=== PATIENT | male | born 1945 | race Asian ===

== ENCOUNTER 2018-09-05 16:48 | Inpatient (IN) | payer OTHER ==
[~2018-09-05] VITALS: Ht 167.6 cm; Wt 67.6 kg
[2018-09-05 17:54] LABS: BASOPHIL % 0.2 % (0-2); PLATELET COUNT 223 x10^3mcL (130-400); RED CELL DISTRIBUTION WIDTH 14.2 % (11.5-14.5)
[2018-09-05 18:00] LABS: CALCIUM 8.9 mg/dL (8.5-10.1); CARBON DIOXIDE 25.7 mmol/L (21-32); CHLORIDE SERUM 99 mmol/L (98-107); CREATININE SERUM 1.5 mg/dL (0.7-1.3); GLUCOSE SERUM 112 mg/dL (74-106); SODIUM SERUM 135 mmol/L (136-145)
[2018-09-05 18:05] LABS: ALBUMIN 3.8 g/dL (3.4-5.0); ALKALINE PHOSPHATASE 98 U/L (46-116); ALT/SGPT 31 U/L (16-63); AST/SGOT 22 U/L (15-37); BILIRUBIN TOTAL 0.4 mg/dL (0.20-1.00); TOTAL PROTEIN, SERUM 8.3 g/dL (6.4-8.2)
[2018-09-05] MEDS ORDERED: LISINOPRIL2.5 MG (18:42)
[2018-09-05] MEDS ORDERED: AMLODIPINE BES2.5 M1 PO (18:42)
[2018-09-05] MEDS ORDERED: ALLOPURINOL100 MG PO (18:43)
[2018-09-05] MEDS ORDERED: METFORMIN HYDR500 M1 PO (18:43)
[2018-09-05] MEDS ORDERED: TOPROL XL25 MG (18:43)
[2018-09-05 19:06] LABS: CHOLESTEROL/HDL RATIO 4.3; MAGNESIUM 2.3 mg/dL (1.8-2.4); PHOSPHOROUS 3.4 mg/dL (2.5-4.9)
[2018-09-05 19:16] LABS: T3 TOTAL 1.24 ng/mL
[2018-09-05 20:58] LABS: FREE T4 1.07 ng/dL (0.76-1.46); FREE THYROXINE INDEX 3.4 ug/dL (1.4-4.5); T4(THYROXINE) 8.6 ug/dL (4.7-13.3)
[2018-09-05 21:48] VITALS: BP 137/69
[2018-09-05 22:01] VITALS: BP 137/69
[2018-09-06] VITALS: BP 137/69
[2018-09-06 02:57] LABS: microscopic required? NO
[2018-09-06 03:29] LABS: urine erythrocyte NEGATIVE (NEGATIVE)
[2018-09-06 04:05] LABS: AMPHETAMINE QUAL UR NONE DETECTED (See below)
[2018-09-06 05:20] LABS: BASOPHIL % 0.3 % (0-2); PLATELET COUNT 210 x10^3mcL (130-400)
[2018-09-06 05:26] LABS: RED CELL DISTRIBUTION WIDTH 15.1 % (11.5-14.5)
[2018-09-06 05:43] LABS: CALCIUM 8.5 mg/dL (8.5-10.1); CARBON DIOXIDE 25.5 mmol/L (21-32); CHLORIDE SERUM 102 mmol/L (98-107); CREATININE SERUM 1.3 mg/dL (0.7-1.3); GLUCOSE SERUM 170 mg/dL (74-106); MAGNESIUM 2.2 mg/dL (1.8-2.4); PHOSPHOROUS 3.2 mg/dL (2.5-4.9); POTASSIUM SERUM 4.3 mmol/L (3.5-5.1); SODIUM SERUM 136 mmol/L (136-145)
[2018-09-06 06:14] VITALS: BP 128/74
[2018-09-06 07:30] VITALS: BP 141/78
[2018-09-06 10:00] VITALS: BP 124/70
[2018-09-06] MEDS ORDERED: MEDDP PO (11:18)
[2018-09-06 11:33] VITALS: Ht 167.6 cm; Wt 67.6 kg
[2018-09-06 11:48] VITALS: BP 124/70
== END 2018-09-06 12:22 | disposition home or self-care (01) | DRG 915 ==
LOC: ED 16:48 → IC 18:17
PROVIDERS: Emergency Medicine; ADMIT Family Medicine
PROC: 30233K1 Transfusion of Nonautologous Frozen Plasma into Peripheral Vein, Percutaneous Approach (ICD-10-PCS; principal; 2018-09-05)
DX: T78.3XXA Angioneurotic edema, initial encounter (principal); N17.0 Acute kidney failure with tubular necrosis; E87.1 Hypo-osmolality and hyponatremia; E11.9 Type 2 diabetes mellitus without complications; I10 Essential (primary) hypertension; E78.5 Hyperlipidemia, unspecified; M10.9 Gout, unspecified; Z79.84 Long term (current) use of oral hypoglycemic drugs; T46.4X5A Adverse effect of angiotensin-converting-enzyme inhibitors, initial encounter; Y92.018 Other place in single-family (private) house as the place of occurrence of the external cause; Z68.25 Body mass index [BMI] 25.0-25.9, adult
CPT/HCPCS: 82962; 83880; 84439; J0171; J1100; J1200; J2920; J2930; J3490; J7030; J7040; J7620; J7633; P9059; Q0092

== ENCOUNTER 2019-01-26 07:54 | Inpatient (IN) | payer OTHER ==
[~2019-01-26] VITALS: Ht 170.2 cm; Wt 72.2 kg
[~2019-01-26 07:54] MED LIST: ALLOPURINOL100 MG PO; AMLODIPINE BES2.5 M1 PO; LISINOPRIL2.5 MG; MEDDP PO; METFORMIN HYDR500 M1 PO; TOPROL XL25 MG
[2019-01-26 07:58] VITALS: Ht 170.2 cm; Wt 72.2 kg
[2019-01-26 09:02] LABS: microscopic required? NO
[2019-01-26 09:07] LABS: BASOPHIL % 0.4 % (0-2); PLATELET COUNT 197 x10^3mcL (130-400)
[2019-01-26 09:10] LABS: RED CELL DISTRIBUTION WIDTH 15.6 % (11.5-14.5)
[2019-01-26 09:23] LABS: CALCIUM 8.9 mg/dL (8.5-10.1); CARBON DIOXIDE 25.9 mmol/L (21-32); CHLORIDE SERUM 105 mmol/L (98-107); CREATININE SERUM 1.2 mg/dL (0.7-1.3); GLUCOSE SERUM 111 mg/dL (74-106); POTASSIUM SERUM 3.8 mmol/L (3.5-5.1); SODIUM SERUM 141 mmol/L (136-145)
[2019-01-26 09:28] LABS: ALKALINE PHOSPHATASE 93 U/L (46-116); ALT/SGPT 38 U/L (16-63); AMYLASE 59 U/L (25-115); AST/SGOT 18 U/L (15-37); CHOLESTEROL 149 mg/dL (<200); HDL CHOLESTEROL 36 mg/dL (40-60); LIPASE 160 IU/L (73-393); TOTAL PROTEIN, SERUM 7.2 g/dL (6.4-8.2)
[2019-01-26] MEDS ORDERED: LOSARTAN POTASS50 M1 PO (09:28)
[2019-01-26 09:32] LABS: ALBUMIN 3.3 g/dL (3.4-5.0)
[2019-01-26 09:35] LABS: AMPHETAMINE QUAL UR NONE DETECTED (See below)
[2019-01-26 10:22] LABS: UA SPECIFIC GRAVITY <=1.005 (1.005-1.035); urine erythrocyte NEGATIVE (NEGATIVE)
[2019-01-26 12:48] LABS: T3 TOTAL 1.08 ng/mL
[2019-01-26 12:53] LABS: FREE T4 0.94 ng/dL (0.76-1.46); FREE THYROXINE INDEX 2.6 ug/dL (1.4-4.5); T4(THYROXINE) 7.1 ug/dL (4.7-13.3)
[2019-01-26 13:01] LABS: CHOLESTEROL/HDL RATIO 4.2; MAGNESIUM 2.1 mg/dL (1.8-2.4); PHOSPHOROUS 3.5 mg/dL (2.5-4.9)
[2019-01-26 15:51] VITALS: BP 152/76
[2019-01-26 21:27] VITALS: BP 150/74
[2019-01-27 05:01] VITALS: BP 134/74
[2019-01-27 06:17] LABS: BASOPHIL % 0.3 % (0-2); PLATELET COUNT 194 x10^3mcL (130-400)
[2019-01-27 07:00] LABS: RED CELL DISTRIBUTION WIDTH 15.4 % (11.5-14.5)
[2019-01-27 07:01] LABS: rbc morphology (normal/abnorm) ABNORMAL (NORMAL)
[2019-01-27 08:26] VITALS: BP 155/72
[2019-01-27 12:02] LABS: CALCIUM 8.5 mg/dL (8.5-10.1); CARBON DIOXIDE 29.3 mmol/L (21-32); CHLORIDE SERUM 103 mmol/L (98-107); CREATININE SERUM 1.1 mg/dL (0.7-1.3); GLUCOSE SERUM 123 mg/dL (74-106); SODIUM SERUM 139 mmol/L (136-145)
[2019-01-27 12:36] VITALS: BP 153/84
[2019-01-27 17:12] VITALS: BP 149/78
[2019-01-27 21:17] VITALS: BP 148/78
[2019-01-28 06:01] VITALS: BP 155/77
[2019-01-28 07:29] LABS: BASOPHIL % 0.1 % (0-2); PLATELET COUNT 194 x10^3mcL (130-400)
[2019-01-28 07:33] LABS: RED CELL DISTRIBUTION WIDTH 15.2 % (11.5-14.5)
[2019-01-28 07:46] LABS: CALCIUM 8.9 mg/dL (8.5-10.1); CARBON DIOXIDE 26.4 mmol/L (21-32); CHLORIDE SERUM 104 mmol/L (98-107); CREATININE SERUM 1.1 mg/dL (0.7-1.3); GLUCOSE SERUM 121 mg/dL (74-106); POTASSIUM SERUM 4.1 mmol/L (3.5-5.1); SODIUM SERUM 140 mmol/L (136-145)
[2019-01-28 09:48] VITALS: BP 149/90
[2019-01-28 12:00] LABS: rbc morphology (normal/abnorm) ABNORMAL (NORMAL)
[2019-01-28 13:15] VITALS: BP 132/80
[2019-01-28 17:35] VITALS: BP 133/79
[2019-01-28 21:10] VITALS: BP 131/70
[2019-01-29 05:48] VITALS: BP 134/70
[2019-01-29 06:46] VITALS: BP 133/74
[2019-01-29 08:09] LABS: BASOPHIL % 0.1 % (0-2); PLATELET COUNT 198 x10^3mcL (130-400)
[2019-01-29 08:13] LABS: RED CELL DISTRIBUTION WIDTH 15.6 % (11.5-14.5)
[2019-01-29 08:24] LABS: CALCIUM 9.2 mg/dL (8.5-10.1); CHLORIDE SERUM 104 mmol/L (98-107); CREATININE SERUM 1.2 mg/dL (0.7-1.3); GLUCOSE SERUM 131 mg/dL (74-106); POTASSIUM SERUM 4.5 mmol/L (3.5-5.1); SODIUM SERUM 140 mmol/L (136-145)
[2019-01-29] MEDS ORDERED: LIPI10 PO (11:18)
[2019-01-29] MEDS ORDERED: CORE25 PO (11:26)
[2019-01-29 13:40] VITALS: BP 144/71
== END 2019-01-29 14:05 | disposition home or self-care (01) | DRG 313 ==
LOC: ED 07:54 → DU 11:54
PROVIDERS: Emergency Medicine; ADMIT General Practice
DX: R07.9 Chest pain, unspecified (principal); T78.3XXA Angioneurotic edema, initial encounter; T46.5X5A Adverse effect of other antihypertensive drugs, initial encounter; E78.5 Hyperlipidemia, unspecified; I10 Essential (primary) hypertension; E11.9 Type 2 diabetes mellitus without complications; Z68.25 Body mass index [BMI] 25.0-25.9, adult; Z79.84 Long term (current) use of oral hypoglycemic drugs; Y92.009 Unspecified place in unspecified non-institutional (private) residence as the place of occurrence of the external cause
CPT/HCPCS: 82962; 83880; 84439; G0378; J2930; J7030; Q0092; Q0163